=== PATIENT | male | born 1960 | race Two or more races ===

== ENCOUNTER 2024-09-05 07:40 | Outpatient (RCR) | payer MEDICAID, SELFPAY ==
--- NOTE | 2024-09-05 08:34 | CTCFLWUP_ITS ---
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 Diez 06/28/2023. Due to size greater than 5 cm (4.8 x 6 x 7.4 cm radiographically ) with uncertain margins following surgery based on NCCN guidelines and up-to-date review of literature postop radiation therapy 6000 cGy right upper thigh completed 10/08/2023. CT scan chest abdomen pelvis 03/27/2024 revealed 3 mm pulmonary nodule lingular segment left upper lobe and 3 mm pulmonary nodule left lower lobe with 6-month CT chest follow-up recommended. As I see patient today patient has the radiation changes of the upper thigh region with no sign of any recurrence. Lungs are clear patient appears well. Assessment. 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 2. Repeat CT chest abdomen and pelvis. 3. Follow-up in 6 months. Electronically signed by: Gigi Lopez M.D. 09/05/2024 8:32 AM
== END 2024-09-17 23:59 | disposition home or self-care (01) ==
LOC: SCTC 07:40
PROVIDERS: PCP Family Medicine; Referring Provider Radiology Therapeutic Radiology; Visit Provider Radiology Therapeutic Radiology
DX: C49.21 Malignant neoplasm of connective and soft tissue of right lower limb, including hip (principal); R91.1 Solitary pulmonary nodule
CPT/HCPCS: 99213; G0463

== ENCOUNTER → 2024-10-11 | Outpatient (CLI) | payer MEDICAID, SELFPAY ==
[2024-10-01 09:36] LABS: Basophils % (Auto) 1 % (0-2.5); Eosinophils # (Auto) 0.1 Thou/mm3 (0.0-0.5); Eosinophils % (Auto) 2 % (0-10); Hematocrit 40.7 % (41.0-53.0); Hemoglobin 14.3 g/dL (13.5-16.0); Immature Granulocytes % (Auto) 0 % (0-0); Immature Granulocytes Auto 0.01 Thou/mm3 (0.00-0.00); Lymphocytes # (Auto) 1.3 Thou/mm3 (1.0-4.8); Lymphocytes % (Auto) 31 % (10-50); Mean Corpuscular HGB Conc 35.1 g/dl (31.0-37.0); Mean Corpuscular Hemoglobin 31.4 pg (25.0-35.0); Mean Corpuscular Volume 90 fL (80-100); Monocytes # (Auto) 0.2 Thou/mm3 (0.0-0.8); Monocytes % (Auto) 5 % (0-12); Neutrophils # (Auto) 2.6 Thou/mm3 (1.8-7.7); Neutrophils % (Auto) 60 % (37-80); Nucleated Red Blood Cell % 0 /100 WBC (0); Platelet Count 221 Thou/mm3 (140-440); RDW Standard Deviation 42.4 fL (35.1-43.9); Red Blood Count 4.55 Miln/mm3 (4.50-5.90); White Blood Count 4.3 Thou/mm3 (3.8-10.6)
[2024-10-01 09:50] LABS: Alanine Aminotransferase 18 U/L (10-49); Albumin, Serum 4.2 gm/dL (3.4-4.8); Albumin/Globulin Ratio 1.8 (1.2-2.2); Alkaline Phosphatase 67 U/L (46-116); Anion Gap 9 (7-16); Aspartate Amino Transferase 21 U/L (0-34); BUN/Creatinine Ratio 23 Ratio (12-20); Blood Urea Nitrogen 18 mg/dL (9-23); Carbon Dioxide 26.2 mMol/L (20.0-31.0); Chloride 105 mMol/L (98-107); Creatinine (Component) 0.8 mg/dL (0.6-1.3); Globulin 2.3 gm/dL (2.3-3.5); Glucose 104 mg/dL (74-106); Osmolality,Calculated 281 (275-295); Sodium 140 mMol/L (136-145); Total Protein 6.5 gm/dL (5.7-8.2); eGFR > 60 See Note
--- NOTE | 2024-10-11 09:00 | XR_ITS ---
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 Images obtained post intravenous injection Isovue 370 60 cc. 2-D sagittal and coronal reconstructions. Low dose protocols were performed. One or more of the following dose reduction techniques were used; automated exposure control, adjustment of the mA and/or KV according to patient size, use of iterative reconstruction technique. Findings: No thoracic aortic aneurysm dilatation or dissection No pulmonary artery filling defects No paratracheal tracheobronchial or bronchopulmonary adenopathy 4 mm pulmonary nodule right lower lobe image 228 2 mm pulmonary nodule lingular segment image 243 2 mm pulmonary nodule lingular segment image 269 No focal liver or splenic lesions No definite gallstones No pancreatic or adrenal mass No abdominal or pelvic lymphadenopathy No hydronephrosis Normal appendix Colonic diverticulosis, no diverticulitis Contracted urinary bladder Transverse prostate dimension 5.1 cm Severe osteopenia IMPRESSION: Noncalcified pulmonary nodules as above, with this study as baseline recommend continued 6 month follow-up CT chest without contrast
== END | disposition home or self-care (01) ==
PROVIDERS: PCP Radiology Therapeutic Radiology; Referring Provider Radiology Therapeutic Radiology; Visit Provider Radiology Therapeutic Radiology
DX: R91.8 Other nonspecific abnormal finding of lung field (principal); C49.9 Malignant neoplasm of connective and soft tissue, unspecified
CPT/HCPCS: 36415; 71260; 74177; 80053; 85025; A4649; Q9967

== ENCOUNTER 2025-03-06 15:03 | Outpatient (RCR) | payer MEDICARE, MEDICAID, SELFPAY ==
--- NOTE | 2025-03-06 16:12 | CTCFLWUP_ITS ---
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 Diez 06/28/2023. Due to size greater than 5 cm (4.8 x 6 x 7.4 cm radiographically) with uncertain margins following surgery based on NCCN guidelines and up-to-date review of literature post ration therapy 6000 cGy right upper thigh completed 10/08/2023. CT scan chest abdomen pelvis 03/27/2024 revealed 3 mm pulmonary nodule lingular segment left upper lobe and 3 mm of pulmonary nodule left lower lobe with [address] follow-up recommended. CT chest 10/11/2024 reveals noncalcified pulmonary nodules subcentimeter with continued 6-month CT chest without contrast recommended. As I see patient today patient appears well. No growth noted in the right inguinal leg area. Lungs clear. Repeat CT scan of chest without contrast. See patient in 6 months if scan unremarkable. Electronically signed by: Gigi Lopez M.D. 03/06/2025 4:09 PM
== END 2025-03-19 23:59 | disposition home or self-care (01) ==
LOC: SCTC 15:03
PROVIDERS: PCP Family Medicine; Referring Provider Radiology Therapeutic Radiology; Visit Provider Radiology Therapeutic Radiology
DX: R91.8 Other nonspecific abnormal finding of lung field (principal); D17.23 Benign lipomatous neoplasm of skin and subcutaneous tissue of right leg; Z92.3 Personal history of irradiation
CPT/HCPCS: 99212; G0463

== ENCOUNTER → 2025-04-03 | Outpatient (CLI) | payer MEDICARE, MEDICAID, SELFPAY ==
--- NOTE | 2025-04-03 10:30 | XR_ITS ---
EXAMINATION: CT chest without contrast Date and time: April 03, 2025, 1031 hours, comparison October 11, 2024 INDICATIONS: Diagnosis malignant neoplasm of connective and soft tissue, noncalcified pulmonary nodules on CT chest October 11, 2024 Technique and findings: Multiple [address] chest images without contrast 2D sagittal: Reconstructions 3D reconstructions No thoracic aortic aneurysm dilatation Pulmonary artery segments are not enlarged. No paratracheal or tracheobronchial or bronchopulmonary adenopathy. COPD with areas of airspace destruction Stable bilateral pulmonary nodules, no new pulmonary nodules No pneumonia or pulmonary edema No visualized liver or splenic lesion Contracted gallbladder No pancreatic or adrenal mass Left parapelvic cyst Lipomatous change in the posterior abdominal wall musculature axial image 188, measuring 4.7 cm IMPRESSION: Stable pulmonary nodules compared to the prior study No interval pneumonia or pulmonary edema
== END | disposition home or self-care (01) ==
PROVIDERS: PCP Family Medicine; Referring Provider Radiology Therapeutic Radiology; Visit Provider Radiology Therapeutic Radiology
DX: R91.8 Other nonspecific abnormal finding of lung field (principal); C49.9 Malignant neoplasm of connective and soft tissue, unspecified
CPT/HCPCS: 71250